=== PATIENT | male | born 1965 | race Two or more races ===

== ENCOUNTER → 2020-11-07 11:13 | Outpatient (BNVA) | payer OTHER, SELFPAY | PROVIDERS: Visit Provider Physician Assistant | DX: Z76.89 Persons encountering health services in other specified circumstances (principal) ==

== ENCOUNTER → 2020-11-11 10:01 | Outpatient (BNVA) | payer OTHER, SELFPAY | PROVIDERS: Visit Provider Physician Assistant | DX: Z76.89 Persons encountering health services in other specified circumstances (principal) ==

== ENCOUNTER 2021-08-13 09:46 | Outpatient (REF) | payer OTHER, SELFPAY ==
--- NOTE | ~2021-08-13 | XR_ITS ---
EXAMINATION: XR WRIST, RIGHT CLINICAL INFORMATION: Pain in the right wrist. COMPARISON: None TECHNIQUE: PA, lateral, and oblique views of the right wrist. FINDINGS: No acute fractures or malalignment. There is widening of the scapholunate interval measuring up to 1 cm with proximal migration of the capitate. There is joint space narrowing and subcortical sclerosis in the radiocarpal joint, triscaphe space and first carpometacarpal articulation. No erosions. No chondrocalcinosis. Normal appearance of the soft tissues. XR/XR wrist RT min 3V IMPRESSION: Widening of the scapholunate interval with proximal migration of the capitate indicative of injury to the scapholunate ligament. If indicated, consider further evaluation with an MR. 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 No acute fractures.
== END 2021-08-13 09:47 | disposition home or self-care (01) ==
LOC: HO.HOSX 09:46
PROVIDERS: Visit Provider Orthopaedic Surgery
DX: S63.8X1A Sprain of other part of right wrist and hand, initial encounter (principal); G56.01 Carpal tunnel syndrome, right upper limb
CPT/HCPCS: 73110; 99202

== ENCOUNTER 2021-09-04 10:45 | Day surgery (SDC) | payer OTHER, SELFPAY ==
[2021-09-04 10:49] VITALS: BP 118/59; PULSE 63; RESP 16; TEMP 36.3; O2SAT 96
[2021-09-04 10:57] VITALS: BMI 28.4
--- NOTE | 2021-09-04 11:08 | MHC.SHP ---
Pre-Procedural Eval Section A Date of Service: 09/04/21 The patient is an INPATIENT: No Changes since office visit: No Cold of Flu in the past 2 weeks, No New Medical Problems, No Changes in Medication and No Patient answered all questions The History & Physical has been completed within 30 days and I have reviewed it.: Yes Section B Chief Complaint: Carpal Tunnel Syndrome Allergies: Allergies Allergy/AdvReac Type Severity Reaction Status Date / Time No Known Allergies Allergy Verified 08/13/21 13:40 Plan I have reviewed the history and physical and performed a pertinent physical examination on my patient. No changes have occurred unless specified.
--- NOTE | 2021-09-04 11:09 | W.PM.OPN ---
Operative Note Operative Note Date of Service: 09/04/21 Narrative: Preop diagnosis: 1. Right Carpal tunnel syndrome Postop diagnosis: same Procedure: 1. Right Carpal tunnel release Surgeon: Jessica Ordoñez MD Anesthesia: local block using 1% lidocaine with epinephrine Findings: Thickened transverse carpal ligament. EBL: Less than 5 mL Specimens: None Complications: None Disposition: Brought to recovery room in stable condition Plan: Follow-up for 7-10 days for wound check and suture removal Indications: The patient is 55 years old, with right carpal tunnel syndrome that has been unresponsive to nonoperative management. The risks and benefits of operative treatment including but not limited to risk of damage to blood vessels, nerves, tendons, infection, persistent pain, persistent symptoms, or possible need for additional surgery were discussed with the patient and the patient wishes to proceed with surgery. Procedure: Once consent was obtained a local block was performed using a combination of 1% lidocaine with epinephrine. The patient was then brought back to the operating suite and placed on the operative table in supine position. A tourniquet was applied to the proximal aspect of the right upper extremity and the limb was prepped and draped in a standard surgical fashion. Once assured that we had a good block, a 1.5 cm longitudinal incision was made centered over the carpal tunnel. The incision was made through the skin to the subcutaneous tissues using a #15 blade. Dissection was made down to the level of the transverse carpal ligament with care being taken to protect the palmar cutaneous nerve. Once the transverse carpal ligament was clearly visualized, a longitudinal incision was made in the transverse carpal ligament 1st using a #15 blade, then using tenotomy scissors under direct visualization. Care was taken to look for and protect the motor branch of the median nerve when seen in this area. Once satisfied with our carpal tunnel release the wound was copiously irrigated with normal saline and hemostasis was obtained with a brief period of local pressure. The skin edges were reapproximated with some 5.0 nylon suture material and a sterile dressing was applied. The patient appears to have tolerated the procedure well and with no complications. All digits were well vascularized at the conclusion of the case.
[2021-09-04 12:59] VITALS: BP 134/76; PULSE 54; RESP 20; TEMP 37; O2SAT 98
== END 2021-09-04 13:17 | disposition home or self-care (01) ==
PROVIDERS: Visit Provider Orthopaedic Surgery
PROC: (CPT 64721; principal; 2021-09-04 11:40)
DX: G56.01 Carpal tunnel syndrome, right upper limb (principal); G47.33 Obstructive sleep apnea (adult) (pediatric); F41.9 Anxiety disorder, unspecified; I83.90 Asymptomatic varicose veins of unspecified lower extremity
CPT/HCPCS: 64721

== ENCOUNTER → 2021-09-17 13:49 | Outpatient (BNVA) | payer OTHER, SELFPAY | PROVIDERS: Visit Provider Orthopaedic Surgery | DX: G56.01 Carpal tunnel syndrome, right upper limb (principal); I83.90 Asymptomatic varicose veins of unspecified lower extremity | CPT/HCPCS: 99212 ==

== ENCOUNTER → 2021-12-24 15:36 | Outpatient (BNVA) | payer OTHER, SELFPAY | PROVIDERS: Visit Provider Nurse Practitioner Family | DX: F07.81 Postconcussional syndrome (principal); F51.5 Nightmare disorder; F43.12 Post-traumatic stress disorder, chronic; R51.9 Headache, unspecified; Z79.899 Other long term (current) drug therapy | CPT/HCPCS: 99212 ==

== ENCOUNTER → 2022-09-18 14:46 | Outpatient (BNVA) | payer OTHER, SELFPAY | PROVIDERS: Visit Provider Nurse Practitioner Family | DX: F07.81 Postconcussional syndrome (principal); R51.9 Headache, unspecified; F51.5 Nightmare disorder; F43.12 Post-traumatic stress disorder, chronic | CPT/HCPCS: 99212 ==

== ENCOUNTER → 2023-03-22 15:01 | Outpatient (BNVA) | payer OTHER, SELFPAY | PROVIDERS: Visit Provider Nurse Practitioner Family | DX: F07.81 Postconcussional syndrome (principal); F51.5 Nightmare disorder; F43.12 Post-traumatic stress disorder, chronic; F43.10 Post-traumatic stress disorder, unspecified; R51.9 Headache, unspecified | CPT/HCPCS: 99212 ==

== ENCOUNTER 2023-09-29 14:15 | Outpatient (AMB) | payer OTHER, SELFPAY ==
--- NOTE | 2023-09-29 14:15 | MHC.OFFVIS ---
Intake Vital Signs 09/29/23 14:18 Weight 224 lb 2 oz BP 150/100 H Blood Pressure Location Lt brachial Position Sitting Pulse 98 Pulse Source Pulse Oximeter Pulse Oximetry (%) 97 Oxygen Delivery Method Room Air Intake Visit Reasons: f/u appt - Confirmed Intake Note: Pt presents today for fup post concussion no new sxs. Pt states headaches have improved Allergies losartan Allergy (Severe, Verified 09/29/23 14:21) Swelling Medication List - Last Reconciled 09/29/23 by Marcella Colon, RITA amitriptyline 20 mg (2 x 10 mg) PO BEDTIME 30 days htowfakxba-qlkymvdjayqen-ddwa 50-325-40 mg 1 cap PO Q4H PRN 30 days ketoconazole 2% appl topical DAILY lisinopril 20 mg PO DAILY prazosin 1 mg PO BEDTIME 30 days HPI HPI Comments History of Present Illness Details 57-yr-old male presents for f/u visit. Pt reports he underwent a f/u lumbar repair, which has reduced the RLE pain. However, now he is having more LLE shooting nerve pain. He is going to undergo a f/u lumbar revision on 10/07/23. His Losartan was d/'d d/t angioedema. He wa started on Lisinopril. He is having an occasional headache. Sleeping ok- using prazosin. Still has issues with crowds and unfamiliar environments. 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 Review of Systems Const All systems reviewed & are unremarkable except as noted in HPI and below Physical Exam Vital Signs: Last Vital Signs Pulse 98 09/29/23 14:18 BP 150/100 H 09/29/23 14:18 Pulse Ox 97 09/29/23 14:18 Oxygen Delivery Method Room Air 09/29/23 14:18 Const General: cooperative and no acute distress Orientation/consciousness: patient oriented x3 HEENT Head: Yes normocephalic Resp Effort & Inspection: normal respiratory effort and able to speak in complete sentences Neuro General: patient oriented x3, gait normal and CN's II-XI intact bilaterally Cognition (Neuro): normal cognition Motor exam (neuro): 5/5 motor strength present throughout Psych Appearance: grossly normal Mental Status: mental status grossly normal Speech and movement: Normal speech and movement present Affect: normal affect Attitude: cooperative Thought process: Normal thought process present Thought content: Normal thought content present Insight: Good insight present (Psych) Judgement: Good judgement present (Psych) Assessment & Plan Assessment & Plan (1) Postconcussion syndrome: Comment: s/p head injury at work on 02/24/18. Code(s): F07.81 - Postconcussional syndrome (2) PTSD (post-traumatic stress disorder): Code(s): F43.10 - Post-traumatic stress disorder, unspecified (3) Nightmares associated with chronic post-traumatic stress disorder: Code(s): F51.5 - Nightmare disorder; F43.12 - Post-traumatic stress disorder, chronic (4) Headache: Code(s): R51.9 - Headache, unspecified Plan Continue Amitriptyline 10-20mg qhs for headache prevention. Continue Fioricet prn at onset of headache. Continue Prazosin 1mg qhs for PTSD related nightmares and headache control. Continue psychotherapy for PTSD and anxiety. f/u in March 2024 or sooner prn. Medications: Refilled zuhvhhfzfl-zdvogpwkgiiau-xxbd 50-325-40 mg 1-2 caps at onset of headache, may repeat in 4 hours (max 4 per day and 4 per week) 1 cap PO Q4H PRN 20 caps 3RF headache 30 days prazosin 1 mg PO BEDTIME 30 caps 6RF 30 days amitriptyline 20 mg (2 x 10 mg) PO BEDTIME 60 tabs 3RF 30 days Coding Level of Care Code Est Pt Level 4 (49230) Diagnoses Postconcussion syndrome F07.81 PTSD (post-traumatic stress disorder) F43.10 Nightmares associated with chronic post-traumatic stress disorder F51.5; F43.12 Headache R51.9
[2023-09-29 14:18] VITALS: BP 150/100; PULSE 98; O2SAT 97
== END 2023-09-29 14:47 | disposition home or self-care (01) ==
LOC: HO.HSMS 14:15
PROVIDERS: Visit Provider Nurse Practitioner Family
DX: F43.10 Post-traumatic stress disorder, unspecified (principal); R51.9 Headache, unspecified; F07.81 Postconcussional syndrome; F51.5 Nightmare disorder; F43.12 Post-traumatic stress disorder, chronic
CPT/HCPCS: 99214

== ENCOUNTER → 2023-09-29 14:15 | Outpatient (BNVA) | payer OTHER, SELFPAY | PROVIDERS: Visit Provider Nurse Practitioner Family | DX: F07.81 Postconcussional syndrome (principal); F43.10 Post-traumatic stress disorder, unspecified; F51.5 Nightmare disorder; F43.12 Post-traumatic stress disorder, chronic; R51.9 Headache, unspecified | CPT/HCPCS: 99212 ==

== ENCOUNTER 2024-10-11 15:06 | Outpatient (AMB) | payer OTHER, SELFPAY ==
--- NOTE | 2024-10-11 15:08 | MHC.OFFVIS ---
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 Pt reports he no longer has a PCP. His BP is elevated today. He is not taking any anti-HTN tx- reviewed previous PCP notes- allergy to lisinopril- angioedema. Recently had a lumbar MRI for f/u back pain. Pt reports he underwent a f/u lumbar repair, which has reduced the RLE pain. However, now he is having more LLE shooting nerve pain. He is going to undergo a f/u lumbar revision on 10/07/23. He is having a bit more typical headache, Fioricet is effective. Post traumatic nightmares usually well-managed w/ prazosin. Still has issues with crowds and unfamiliar environments. 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 Physical Exam Vital Signs: Last Vital Signs Pulse 72 10/11/24 15:11 BP 156/100 H 10/11/24 15:11 Pulse Ox 96 10/11/24 15:11 Oxygen Delivery Method Room Air 10/11/24 15:11 Const General: cooperative and no acute distress Orientation/consciousness: patient oriented x3 HEENT Head: Yes normocephalic Resp Effort & Inspection: normal respiratory effort and able to speak in complete sentences Cardio Rate: regular rate Rhythm: regular rhythm Neuro General: patient oriented x3, gait normal and CN's II-XI intact bilaterally Cognition (Neuro): normal cognition Motor exam (neuro): 5/5 motor strength present throughout Psych Appearance: grossly normal Mental Status: mental status grossly normal Speech and movement: Normal speech and movement present Affect: normal affect Attitude: cooperative Thought process: Normal thought process present Thought content: Normal thought content present Insight: Good insight present (Psych) Judgement: Good judgement present (Psych) Assessment & Plan Assessment & Plan (1) Postconcussion syndrome: Comment: s/p head injury at work on 02/24/18. Code(s): F07.81 - Postconcussional syndrome Category: Medical (2) PTSD (post-traumatic stress disorder): Code(s): F43.10 - Post-traumatic stress disorder, unspecified Category: Medical (3) Nightmares associated with chronic post-traumatic stress disorder: Code(s): F51.5 - Nightmare disorder; F43.12 - Post-traumatic stress disorder, chronic Category: Medical (4) Headache: Code(s): R51.9 - Headache, unspecified Category: Medical (5) HTN (hypertension): Code(s): I10 - Essential (primary) hypertension Category: Medical Plan Continue Amitriptyline 10-20mg qhs for headache prevention. Start labetolol 100mg bid- for headache prevention as well as BP control. Continue Fioricet prn at onset of headache. Continue Prazosin 1mg qhs for PTSD related nightmares and headache control. Continue psychotherapy for PTSD and anxiety. Check labs- not work comp f/u in March 2024 or sooner prn. Orders: Orders Comprehensive Met. Panel 10/11/24 I10 - Essential (primary) hypertension Lipid Panel with Reflex 10/11/24 I10 - Essential (primary) hypertension CRP High Sensitivity 10/11/24 I10 - Essential (primary) hypertension Complete Blood Count Auto Diff 10/11/24 I10 - Essential (primary) hypertension Hemoglobin A1c 10/11/24 I10 - Essential (primary) hypertension Erythrocyte Sedimentation Rate 10/11/24 I10 - Essential (primary) hypertension Medications: New labetalol 100 mg PO BID 60 tabs 3RF 30 days Scribe Plan - Not visible on output: Reviewed possible medication side effects, including but not limited to drowsiness, dizziness. Coding Level of Care Code Est Pt Level 4 (69015) Diagnoses Postconcussion syndrome F07.81 PTSD (post-traumatic stress disorder) F43.10 Nightmares associated with chronic post-traumatic stress disorder F51.5; F43.12 Headache R51.9 HTN (hypertension) I10
[2024-10-11 15:11] VITALS: BP 156/100; PULSE 72; O2SAT 96
== END 2024-10-11 15:58 | disposition home or self-care (01) ==
PROVIDERS: Visit Provider Nurse Practitioner Family
DX: F07.81 Postconcussional syndrome (principal); F43.10 Post-traumatic stress disorder, unspecified; F51.5 Nightmare disorder; F43.12 Post-traumatic stress disorder, chronic; R51.9 Headache, unspecified; I10 Essential (primary) hypertension
CPT/HCPCS: 99214

== ENCOUNTER → 2024-10-11 15:06 | Outpatient (BNVA) | payer OTHER, SELFPAY | PROVIDERS: Visit Provider Nurse Practitioner Family | DX: F07.81 Postconcussional syndrome (principal); F43.12 Post-traumatic stress disorder, chronic; F51.5 Nightmare disorder; R51.9 Headache, unspecified; I10 Essential (primary) hypertension | CPT/HCPCS: 99212 ==

== ENCOUNTER 2025-09-14 10:58 | Outpatient (AMB) | payer OTHER, SELFPAY ==
--- NOTE | 2025-09-14 11:02 | A.OFFVIS_ITS ---
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 He reports he had a new PCP, who increased the labetalol dose and added hydrochlorothiazide to help optimize his BP control. He reports he is having occasional posttraumatic headaches, for which Fioricet is usually effective. However, he can still have cervical and spinal muscle tightness and tenderness. He is still prone to persistent photophobia, and asks for a letter to allow him to a motor vehicle windshield tint waiver for when he is in [facility]- as they have recently updated their ANTERIOSshield tint regulations. Post traumatic nightmares usually well-managed w/ prazosin. He endorses that he continues to have anxiety/PTSD symptoms in crowds and unfamiliar environments. 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 Physical Exam Vital Signs: Last Vital Signs Pulse 77 09/14/25 11:07 BP 140/80 H 09/14/25 11:07 Pulse Ox 97 09/14/25 11:07 Oxygen Delivery Method Room Air 09/14/25 11:07 Const General: cooperative and no acute distress Orientation/consciousness: patient oriented x3 HEENT Head: Yes normocephalic Resp Effort & Inspection: normal respiratory effort and able to speak in complete sentences Cardio Rate: regular rate Rhythm: regular rhythm Neuro General: patient oriented x3, gait normal and CN's II-XI intact bilaterally Cognition (Neuro): normal cognition Motor exam (neuro): 5/5 motor strength present throughout Psych Appearance: grossly normal Mental Status: mental status grossly normal Speech and movement: Normal speech and movement present Affect: normal affect Attitude: cooperative Thought process: Normal thought process present Thought content: Normal thought content present Insight: Good insight present (Psych) Judgement: Good judgement present (Psych) Assessment & Plan Assessment & Plan (1) Postconcussion syndrome: Comment: s/p head injury at work on 02/24/18. Code(s): F07.81 - Postconcussional syndrome Category: Medical (2) PTSD (post-traumatic stress disorder): Code(s): F43.10 - Post-traumatic stress disorder, unspecified Category: Medical (3) Nightmares associated with chronic post-traumatic stress disorder: Code(s): F51.5 - Nightmare disorder; F43.12 - Post-traumatic stress disorder, chronic Category: Medical (4) Headache: Code(s): R51.9 - Headache, unspecified Category: Medical Qualifiers: Headache type: post-traumatic Headache chronicity pattern: chronic headache Intractability: not intractable Qualified Code(s): G44.329 - Chronic post-traumatic headache, not intractable (5) HTN (hypertension): Code(s): I10 - Essential (primary) hypertension Category: Medical Qualifiers: Hypertension type: primary hypertension Qualified Code(s): I10 - Essential (primary) hypertension Plan Start cyclobenzaprine 10 mg daily at bedtime for muscle spasm Continue Amitriptyline 10-20mg qhs for headache prevention. Continue labetolol 100mg TID- for headache prevention as well as BP control. Continue Fioricet prn at onset of headache. Continue Prazosin 1mg qhs for PTSD related nightmares and headache control. He has not seen his therapist, in some time. Consider revisiting psychotherapy if PTSD and anxiety symptoms worsen Motor vehicle [employer] waiver letter written. Pt to follow-up in 6 months or sooner prn. Medications: New cyclobenzaprine 10 mg PO BEDTIME PRN hydrochlorothiazide 25 mg PO QAM Changed From labetalol 100 mg PO BID 30 days 60 tabs 6RF To labetalol PCP now ordering 100 mg PO TID 90 tabs 6RF 30 days Refilled ihdqyfhhav-qfszwtxfpeggr-eijz 50-325-40 mg 1-2 caps at onset of headache, may repeat in 4 hours (max 4 per day and 4 per week) 1 cap PO Q4H PRN 20 caps 4RF headache 30 days amitriptyline 20 mg (2 x 10 mg) PO BEDTIME 60 tabs 6RF 30 days prazosin 1 mg PO BEDTIME 30 caps 6RF 30 days Coding Level of Care Code Est Pt Level 4 (83921) Diagnoses Postconcussion syndrome F07.81 PTSD (post-traumatic stress disorder) F43.10 Nightmares associated with chronic post-traumatic stress disorder F51.5; F43.12 Chronic post-traumatic headache, not intractable G44.329 Headache type: post-traumatic Headache chronicity pattern: chronic headache Intractability: not intractable Primary hypertension I10 Hypertension type: primary hypertension
[2025-09-14 11:07] VITALS: BP 140/80; PULSE 77; O2SAT 97
--- OUTSIDE RECORDS SUMMARY | 2025-09-14 13:02 | XMS_ITS | Patient Health Record ---
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 . Pt needs to wear s neakers at all times .; Duration: . 04/05/2014 Active Problems Problem Type SNOMED Code ICD Code Onset Dates Problem Status W/U Status Risk Notes Problem Arthralgia (55352741) Arthralgia (719.40) Active confirmed Problem Hammer toe (008310039) Hammer toe (735.4) Active confirmed Problem Metatarsalgia (84612937) Metatarsalgia (726.70) Active confirmed Problem Pain in limb (10347352) Pain in Limb (729.5) Active confirmed Plan Of Treatment Pending Test Test Name Order Date X ray : Foot, left 3V 04/22/2012, P0604-[id number]/INJECT, JOINT/BURSA 0 04/22/2012, [id number]/INJECT, JOINT/BURSA 0 07/07/2012 [id number] 3mg 07/07/2012 [id number] 3mg 04/22/2012 Insurance Providers Payer Name Payer Address Payer Phone Subscriber Number Group Number Insured Name Patient Relationship to Insured Coverage Start Date Coverage End Date [facility] [address] [place] [address] [id number] Jarvis Paula Self - patient is the insured Medical (General) History Surgical History Surgery Date(Month/Year) bunionectomy 2009
--- OUTSIDE RECORDS SUMMARY | 2025-09-14 13:02 | XMS_ITS | Clinical Summary ---
Author Organization [facility] Address [address] [place] [address] Care Team Providers Care Sole Assessor Name Role Phone Paula Lunsford MD Primary Care Provider Unavailable Medications Medication Sig Dispensed Refills Start Date End Date Status ibuprofen 800 MG tablet Take by mouth every 8 (eight) hours as needed for pain. 0 Active prazosin (MINIPRESS) 1 MG capsule Take 1 mg by mouth every night at bedtime. 0 Active omeprazole (PriLOSEC) 20 MG capsule Take 20 mg by mouth daily. 0 Active losartan (COZAAR) tablet 50 mg Take 50 mg by mouth daily. 0 Active Active Problems Problem Noted Date Diagnosed Date Neutropenia 05/08/2022 Other specified anemias 05/08/2022 Social History Tobacco Use Types Packs/Day Years Used Date Smoking Tobacco: Never Assessed Sex and Gender Information Value Date Recorded Sex Assigned at Not on file Gender Identity Not on file Sexual Orientation Not on file Job Start Date Occupation Industry Not on file Not on file Not on file Last Filed Vital Signs Vital Sign Reading Time Taken Comments Blood Pressure 154/89 05/08/2022 11:14 AM EDT Pulse 65 05/08/2022 11:14 AM EDT Temperature 36.8 C (98.3 F) 05/08/2022 11:14 AM EDT Respiratory Rate - - Oxygen Saturation 97% 05/08/2022 11:14 AM EDT Inhaled Oxygen Concentration - - Weight 95.3 kg (210 lb) 05/08/2022 11:14 AM EDT Height 175.3 cm (5' 9 ) 05/08/2022 11:14 AM EDT Body Mass Index 31.01 05/08/2022 11:14 AM EDT Plan of Treatment Health Maintenance Due Date Last Done Comments Hepatitis B Vaccines (1 of 3 - 3-dose series) 1966 Hepatitis C Screening 1966 Depression Screening 1978 Preventative Health Evaluation 1984 Colon Cancer Screening (Colonoscopy) 2011 Shingrix-Zoster Vaccine (1 of 2) 2016 COVID-19 Vaccine (2 - season) 2025 03/27/2021 Influenza Vaccine (#1) 2025 6, 09/05/2015, 10/18/2013, Additional history exists DTap / Tdap / Td (3 - Td or Tdap) 12/09/2031 12/09/2021, 06/12/2020 Pneumococcal Vaccine Aged Out 01/31/2016 No long er eligible based on patient's age to complete this topic RSV Ped < 20 months Aged Out No longe r eligible based on patient's age to complete this topic Care Teams Sole Assessor Relationship Specialty Start Date End Date Paula Lunsford MD PCP - General Family Medicine 02/06/22
--- OUTSIDE RECORDS SUMMARY | 2025-09-14 13:02 | XMS_ITS | Clinical Summary ---
Author Organization [address] Building Address [address] [place] [phone] Phone Care Team Providers Care Cashier Associate Name Role Phone Oliva Samuel MD Primary Care Provider [phone] Allergies Active Allergy Reactions Criticality Noted Date Comments Amlodipine Headache 01/30/2021 Lisinopril 04/06/2023 angioedema Medications amitriptyline (ELAVIL) 10 mg tablet 4 Active fluticasone propionate (FLONASE) 50 mcg/actuation nasal spray Apply 1-2 sprays in each nostril daily 3 Active prazosin (MINIPRESS) 1 mg capsule Take 1 mg by mouth every night at bedtime. Active butalbital-acetam inophen-caffeine (FIORICET, ESGIC) 50-325-40 mg per tablet Take 1 tablet by mouth every 4 (four) hours. Active cyclobenzaprine (FLEXERIL) 10 mg tabletIndications :Lumbar radiculopathy, acute Take 1 tablet (10 mg total) by mouth 1 (one) time each day if needed for muscle spasms for up to 20 days. 20 each 5 Active labetaloL (NORMODYNE) 100 mg tabletIndications :Primary hypertension Take 1 tablet (100 mg total) by mouth 3 (three) times a day. 270 each 1 5 11/26/19 26 Active ketoconazole (NIZORAL) 2 % creamIndications: Pruritic rash Apply affected area bid 30 g 1 5 Active hydrocortisone 1 % topical creamIndications: Pruritic rash Apply to affected area twice daily for 1 week 120 g 1 5 Active hydroCHLOROthiazi de (HYDRODIURIL) 25 mg tabletIndications :Primary hypertension Take 1 tablet (25 mg total) by mouth 1 (one) time each day. 90 each 1 5 11/26/19 26 Active Active Problems Problem Noted Date Diagnosed Date Lumbar radiculopathy, acute 09/03/2023 Overview (11/02/2024): Last Assessment & Plan: Patient is 12 days s/p left L5-S1 minimally invasive discectomy. He is very happy with his postop results, states the constant pain he had in the left leg is gone. He had a hard time standing up straight preop, states now he can do that without pain. Occasionally with certain movements he will notice mild pain. He notes some stiffness in the hamstring, bilateral buttocks. He has a friend who is an knowledge management consultant who has been helping him, showing him some stretches which seem to be helping. He denies any postop wound drainage, fevers, sweats chills. He has been ambulating. Occasionally he needs oxycodone for incisional pain. He also has been using his Mobic. He plans to go to [facility] couple weeks for an extended period of time, is not able to do physical therapy here, will call for a follow-up appointment as needed. Postop questions answered. Assessment & Plan (05/28/2025 3:48 PM EDT): Mr. Paula is reporting stiffness in the left buttock that improves with stretching but at other times feels too loose and weak to support his weight. He has no pain or paresthesias radiating down his leg and no focal weakness to confrontational testing. He has been doing daily stretches and I suggested he add a piriformis stretch which I demonstrated. This may be a type of radiculopathy given his lower lumbar degenerative change but, it is interesting, that he does not have actual lower back pain and his symptoms do not extend beyond the left buttock. I do not think this is a sacroiliitis. Since his symptoms are so focal, I am not ordering a new lumbar spine MRI. He has been taking meloxicam for his right knee which also somewhat helps with his muscle tightness, but he would do better with a muscle relaxer on the worst days. I have sent in a limited prescription for Flexeril and he will continue a stretching and strengthening program. Neutropenia (CMS/HCC V24) 05/08/2022 Other specified anemias 05/08/2022 ROGER (obstructive sleep apnea) 07/26/2021 Overview (11/02/2024): neurology and sleep PC Hypertension 01/30/2021 Seborrheic dermatitis 12/22/2020 PTSD (post-traumatic stress disorder) 06/19/2020 Right sided sciatica 04/09/2020 Overview (11/02/2024): Last Assessment & Plan: Mr. Paula returns describing pain in the right buttock wrapping around his hip down the proximal thigh from anterior to posterior especially upon awakening in the morning. This improves with walking and as the day goes on. He describes a pinching in his right lower back if he leans in extension and occasionally, he feels weakness in the left proximal leg with activity. He has noticed an improvement in the sensation in his right calf since his recent surgery. He has a history of a right L4-5 far lateral discectomy as well as a left L5-S1 MIS discectomy last year. On exam, there is no step-off or deformity lumbar spine, he is nontender over the spine and the SI joints. He is able to walk on his toes and heels, strength is full. Given his history, I will send him for new lumbar spine MRI to look for further disc degeneration or recurrent disc herniation. I think he will do well with physical therapy and provided a referral slip. Chronic post-traumatic headache, not intractable 06/15/2018 Post concussion syndrome 06/15/2018 Overview (11/02/2024): Neurology and Sleep, Dr. Valdes Obesity 04/30/2016 Prediabetes 01/14/2016 Overview (11/02/2024): A1c 6.2% 09/2018 Disease of white blood cells 03/22/2006 Overview (11/02/2024): evaluated with bone marrow Encounters Date Type Department Care Team Description 09/03/2025 [facility]phone [facility] [address] [facility] [place] [id number] Oliva Samuel MD from Last 3 Months Immunizations Immunization Administration Dates Next Due Hepatitis B (Umuxzmf-D-Ohprh , Recombivax HB-Adult) 19yo and older 07/18/2006,02/16/2006,01/19/2006 Influenza Quadravalent, MDCK , 0.5ml, preservative free (Flucelvax) 6mo and older 11/03/2022 Influenza trivalent, 0.5mL, preservative free (Fluarix; FluLaval; Fluzone) ages 6mo and older (Afluria) 3 years and older 01/31/2016 Influenza trivalent, with pr eservative (Fluzone; Afluria) 6mo and older 09/05/2015,10/18/2013,10/22/2010 iSnap/ReviverMx SARS-CoV-2 COVID -19, vector-nr, rS-Ad26, preservative free 03/27/2021 PPD Test 05/11/2003 Pneumococcal polysaccharide 23 valent (Pneumovax 23) 2yo and older 01/31/2016 Td Tetanus diptheria (Tdvax) 7yo and older 05/08 Tdap Tetanus diptheria acell ular pertussis (Boostrix; Adacel) 7yo and older 12/09/2021 Surgical History Surgery Date Site/Laterality Comments COLONOSCOPY 02/28/2019 PROCEDURE: HISTORICAL COLONOSCOPY; COMMENT: negative BACK SURGERY 10/07/2023 PROCEDURE: HISTORICAL BACK SURGERY; COMMENT: Left L5-S1 minimally invasive discectomy, Dr. Arroyo BACK SURGERY 02/16/2023 PROCEDURE: HISTORICAL BACK SURGERY; COMMENT: Right L4-5 far lateral discectomy, Dr. Arroyo Medical History Medical History Date Comments Unspecified disease of white blood cells 03/22/2006 DX:Unspecified disease of wh ite blood cells; COMMENT: evaluated with bone marrow nl Allergic rhinitis, cause unspecified 12/22/2006 DX:Allergic rhinitis, cause unspecified Chondromalacia of patella 12/22/2006 DX:Cho ndromalacia of patella Post concussion syndrome 2019 DX:Post concussion syndrome HTN (hypertension) DX:HTN (hyper tension) Hypertension 01/30/2021 Family History Medical History Relation Name Comments Blindness Father pt reports reti nal detachment Cataracts Father Diabetes Father Hypertension Father Pancreatic cancer Father Cataracts Maternal Grandfather Other cancer Maternal Grandfather unsure of type Other cancer Maternal Grandmother stomach Other: Peripheral Vascular Disease Maternal Grandmother Other: peripheral vascular disease Mother Other cancer Paternal Grandfather unsure of type Other: Cataracts Paternal Grandmother Brain Aneurysm Sister Glaucoma Neg Hx Macular degeneration Neg Hx Strabismus Neg Hx Relation Name Status Comments Father Maternal Grandfather Maternal Grandmother Mother Paternal Grandfather Paternal Grandmother Sister Social History Tobacco Use Types Packs/Day Years Used Date Smoking Tobacco: Never Smokeless Tobacco: Never Tobacco Cessation:Counseling Given: Not Answered Alcohol Use Standard Drinks/Week Comments Yes 0 (1 standard drink = 0.6 oz pur e alcohol) Sex and Gender Information Value Date Recorded Sex Assigned at Not on file Legal Sex Male 1:23 AM EST Gender Identity Male 10/06/2024 6:46 PM EST Sexual Orientation Not on file Travel History Travel Start Travel End [facility] 08/16/2025 09/13/2025 Obstetrics History Last Filed Vital Signs Vital Sign Reading Time Taken Comments Blood Pressure 160/90 05/30/2025 10:11 AM EDT Pulse 86 05/30/2025 9:47 AM EDT Temperature - - Respiratory Rate - - Oxygen Saturation - - Inhaled Oxygen Concentration - - Weight 97.8 kg (215 lb 9.6 oz) 05/30/2025 9:47 A M EDT Height 177.8 cm (5' 10 ) 09/05/2024 2:35 PM EDT Body Mass Index 30.94 09/05/2024 2:35 PM EDT Plan of Treatment Upcoming Encounters Date Type Department Care Team (Late st Contact Info) Description 09/19/2025 3:00 PM EDT Office Visit Internal Medicine - [address] [phone] Jong Garrido NP [address] [place] [phone] Health Maintenance Due Date Last Done Comments Zoster Vaccines (1 of 2) 2016 Pneumococcal Vaccine: 50+ Years (2 of 2 - PCV) 01/30/2017 01/31/2016 Social Influencers of Health Screening 10/31/2022 Depression Screening 11/22/2024 COVID-19 Vaccine (2 - season) 2025 03/27/2021 Influenza Vaccine (#1) 2025 2, 01/31/2016, 09/05/2015, Additional history exists Hypertension/CHF/CAD Annual BMP Blood Test 10/20/2025 10/20/2024, 10/21/2023 Cholesterol Screening (Lipid Panel) 10/20/2029 10/20/2024 Colorectal Cancer Screening: Colonoscopy 09/02/2031 09/02/2021 DTaP,Tdap,and Td Vaccines (4 - Td or Tdap) 12/09/2031 12/09/2021, 06/12/2020, 05/08/2005 RSV Immunization Adult Patients (1 - 1-dose 75+ series) 2041 Hepatitis B Vaccines Completed 07/18/2006, 02/16/2006, 01/19/2006 HIV Screening Completed 06/19/2020 Hepatitis C Screening Completed 06/19/2020 HIB Vaccines Aged Out No longer eligi ble based on patient's age to complete this topic HPV Vaccines Aged Out No longer eligi ble based on patient's age to complete this topic Hepatitis A Vaccines Aged Out No long er eligible based on patient's age to complete this topic IPV Vaccines Aged Out No longer eligi ble based on patient's age to complete this topic MMR Vaccines Aged Out No longer eligi ble based on patient's age to complete this topic Meningococcal ACWY Vaccine Aged Out N o longer eligible based on patient's age to complete this topic Meningococcal B Vaccine Aged Out No l onger eligible based on patient's age to complete this topic RSV Immunization Patients Under 20 months Aged Out No longer eligible based on patient's age to complete this topic Varicella Vaccines Aged Out No longer eligible based on patient's age to complete this topic Procedures Procedure Name Priority Date/Time Associated Diagnosis Comments COMPREHENSIVE METABOLIC PANEL Routine 10/20/2024 2:38 PM EST Essential hypertension, malignant LIPID PANEL WITH REFLEX TO DIRECT LDL Routine 10/20/2024 2:38 PM EST Essential hypertension, malignant COLONOSCOPY Routine 09/02/2021 HEPATITIS C SCREENING Routine 06/19/2020 HIV SCREENING Routine 06/19/2020 from Last 3 Months or Most Recently Relevant to Health Maintenance Results * (ABNORMAL) Lipid panel with reflex to direct LDL (10/20/2024 2:38 PM EST) Cholesterol 203(H) 0 - 200 mg/dL LAB CHEMISTRY METHOD 10/20/2024 6:19 PM [facility] Triglycerides 110 0 - 150 mg/dL LAB CHEMISTRY METHOD 10/20/2024 6:19 PM [facility] HDL 80 >=40 mg/dL LAB CHEMISTRY METHOD 10/20/2024 6:19 PM [facility] LDL Calculated 101(H) 0 - 100 mg/dL LAB CHEMISTRY METHOD 10/20/2024 6:19 PM [facility] VLDL Cholesterol Dylan 22 mg/dL LAB CHEMISTRY METHOD 10/20/2024 6:19 PM [facility] Non HDL Chol. (LDL+VLDL) 123 <145 mg/dL LAB CHEMISTRY METHOD 10/20/2024 6:19 PM [facility] Chol/HDL Ratio 2.5 0.0 - 4.4 LAB CHEMISTRY METHOD 10/20/2024 6:19 PM [facility] Blood Venous blood specimen / Unknown Venipuncture / Unknown 10/20/2024 2:38 PM EST 10/20/2024 2:38 PM EST Marcella Colon [facility] BLOOD ORDERABLES Chela browne Result [facility] [address] [place] [address], * (ABNORMAL) Comprehensive metabolic panel (10/20/2024 2:38 PM EST) Sodium 137 133 - 145 mmol/L LAB CHEMISTRY METHOD 10/20/2024 6:19 PM [facility] Potassium 4.1 3.5 - 5.5 mmol/L LAB CHEMISTRY METHOD 10/20/2024 6:19 PM [facility] Chloride 102 96 - 110 mmol/L LAB CHEMISTRY METHOD 10/20/2024 6:19 PM [facility] CO2 31 21 - 32 mmol/L LAB CHEMISTRY METHOD 10/20/2024 6:19 PM [facility] Anion Gap 4 3 - 11 LAB CHEMISTRY METHOD 10/20/2024 6:19 PM [facility] Glucose 94 70 - 100 mg/dL LAB CHEMISTRY METHOD 10/20/2024 6:19 PM [facility] BUN 18 5 - 25 mg/dL LAB CHEMISTRY METHOD 10/20/2024 6:19 PM [facility] Creatinine 0.88 0.70 - 1.30 mg/dL LAB CHEMISTRY METHOD 10/20/2024 6:19 PM [facility] eGFR 100 >=60 mL/min/1. 73m2 LAB CHEMISTRY METHOD 10/20/2024 6:19 PM [facility] Comment:Calculation based on the Chronic Kidney Disease Epidemiology Collaboration (CKD-EPI) equation refit without adjustment for race. BUN/Creatinine Ratio 20.5 LAB CHEMISTRY METHOD 10/20/2024 6:19 PM [facility] Calcium 9.3 8.5 - 10.5 mg/dL LAB CHEMISTRY METHOD 10/20/2024 6:19 PM [facility] AST (SGOT) 38 10 - 42 unit/L LAB CHEMISTRY METHOD 10/20/2024 6:19 PM EST [facility] ALT (SGPT) 54 10 - 60 unit/L LAB CHEMISTRY METHOD 10/20/2024 6:19 PM EST [facility] Alkaline Phosphatase 56 42 - 121 unit/L LAB CHEMISTRY METHOD 10/20/2024 6:19 PM [facility] Total Protein 8.2(H) 6.0 - 8.0 g/dL LAB CHEMISTRY METHOD 10/20/2024 6:19 PM EST [facility] Albumin 4.5 3.2 - 5.0 g/dL LAB CHEMISTRY METHOD 10/20/2024 6:19 PM [facility] Total Bilirubin 0.5 0.0 - 1.4 mg/dL LAB CHEMISTRY METHOD 10/20/2024 6:19 PM [facility] Blood Venous blood specimen / Unknown Venipuncture / Unknown 10/20/2024 2:38 PM EST 10/20/2024 2:38 PM EST Marcella Colon [facility] BLOOD ORDERABLES Chela l Result [facility] [address] [place] [address], * Colonoscopy (09/02/2021) Pathologist [facility] Colonoscopy Normal, Abstracted Anatomical Region Laterality Modality Other Historical Provider HEALTH MAINTENANCE Final Result * HIV Screening (06/19/2020) Pathologist [facility] HIV Screening Abstracted Historical Provider HEALTH MAINTENANCE Final Result * Hepatitis C Screening (06/19/2020) Pathologist [facility] Hepatitis C Screening Abstracted [facility] Provider HEALTH MAINTENANCE Final Result from Last 3 Months or Most Recently Relevant to Health Maintenance Insurance [facility] Advance Directives Documents on File Type Date Recorded Patient Monumental Stonemason Expl anation Health Care Decision (hx) 03/27/2023 AD GORMAN DIRECTIVE Health Care Decision (hx) 03/27/2023 AD GORMAN DIRECTIVE Health Care Decision (hx) 03/27/2023 AD GORMAN DIRECTIVE Care Teams Cashier Associate Relationship Specialty Start Date End Date Oliva Samuel MD [address] [place] [phone] PCP - General Internal Medicine 07/26/25
== END 2025-09-14 12:05 | disposition home or self-care (01) ==
LOC: HO.HSMS 10:59
PROVIDERS: Visit Provider Nurse Practitioner Family
DX: F07.81 Postconcussional syndrome (principal); F43.10 Post-traumatic stress disorder, unspecified; F51.5 Nightmare disorder; F43.12 Post-traumatic stress disorder, chronic; G44.329 Chronic post-traumatic headache, not intractable; I10 Essential (primary) hypertension
CPT/HCPCS: 99214

== ENCOUNTER → 2025-09-14 10:58 | Outpatient (BNVA) | payer OTHER, SELFPAY | PROVIDERS: Visit Provider Nurse Practitioner Family | DX: G44.329 Chronic post-traumatic headache, not intractable (principal); F51.5 Nightmare disorder; F43.12 Post-traumatic stress disorder, chronic; I10 Essential (primary) hypertension; R07.81 Pleurodynia; Z79.899 Other long term (current) drug therapy | CPT/HCPCS: 99212 ==